=== PATIENT | male | born 1980 | race Two or more races ===

== ENCOUNTER 2024-07-22 08:00 | Outpatient (RCR) | payer BC, SELFPAY ==
--- NOTE | 2024-07-06 15:05 | PT.OIERPT ---
PT OP Initial Eval Patient Information Outpatient Physical Therapy Treatment Date: 07/06/24 Visit Reasons: LOW BACK PAIN Medical Diagnosis: Back Pain Treatment Dx #1: Back Pain Start of Care: 07/06/24 Smoking Status Smoking Status: Never smoker Initial Assessment Subjective: Pt is a 44 y/o male reports of back pain (02/07) with left radicular pain down the leg. Pt mention xray and CT scan negative. MD plans to do MRI if physical therapy doesn't help. Pt has limitation with walking, standing, chores, self care, cooking, cleaning, and performing recreational activities. Objective: L/S AROM: all motions are WFL with end range pain in all plane Hip PROM: all motions are WFL except IR Hip MMTs: grossly 3/5 Special Test (+) slump (+) SLR Assessment: Pt demonstrate back pain and mobility deficits consistent with disc involvement leading to difficulty with ADLs. Pt will attempt physical therapy if pain persist Pt will be refer back to provider for further consultation. 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
--- NOTE | 2024-07-13 15:59 | PT.ODAYNRPT ---
PT Outpatient Daily Note OP Daily Note Outpatient Physical Therapy Treatment Date: 07/13/24 Visit Reasons: LOW BACK PAIN Subjective: Pt's back is about the same. Pt mention sometimes pain goes down both leg. Objective: Please see flow chart for list of ther ex performed Assessment: during standing extension exercise increase radicular pain down the right glute and increase lumbar pressure, however, able to complete instructed reps. Plan: Continue with PT Length of Time (minutes) of Treatment: 30 Minutes Procedure Charges Therapeutic Exercise 30 minutes: Yes
--- NOTE | 2024-07-15 15:34 | PT.ODAYNRPT ---
PT Outpatient Daily Note OP Daily Note Outpatient Physical Therapy Treatment Date: 07/15/24 Visit Reasons: LOW BACK PAIN Subjective: Pt reports of tight, stiff and painful back. Objective: Please see flow sheet for ther ex list. Assessment: Pt educated and instructed on repeated lumbar extension for HEP. Pt able to replicate HEP with good mechanics. Plan: Continue with POC. Length of Time (minutes) of Treatment: 30 Minutes Procedure Charges Therapeutic Exercise 30 minutes: Yes
--- NOTE | 2024-07-20 10:12 | PT.ODAYNRPT ---
PT Outpatient Daily Note OP Daily Note Outpatient Physical Therapy Treatment Date: 07/20/24 Visit Reasons: LOW BACK PAIN Subjective: Pt reports low back pain continues to be present with no changes in LE symptoms. Objective: Please see flow sheet for ther ex list. Assessment: No changes in symptoms with repeated lumbar extension, pt encouraged to continue with press ups exercise for home as long as there is no increase or aggravating in LE symptoms. Plan: Continue with poC. Length of Time (minutes) of Treatment: 30 Minutes Procedure Charges Therapeutic Exercise 30 minutes: Yes
--- NOTE | 2024-07-22 09:30 | PT.ODAYNRPT ---
PT Outpatient Daily Note OP Daily Note Outpatient Physical Therapy Treatment Date: 07/22/24 Visit Reasons: LOW BACK PAIN Subjective: Pt's back is same and continues to have stiffness. Pt notice his right leg goes numb now too. Objective: Please see flow chart for list of ther ex performed Assessment: standing extension centralize pain but no significant change in overall back pain Plan: Continue with PT Length of Time (minutes) of Treatment: 30 Minutes Procedure Charges Therapeutic Exercise 30 minutes: Yes
== END 2024-07-30 23:59 | disposition home or self-care (01) ==
LOC: CPTX 08:00
PROVIDERS: PCP Internal Medicine; Referring Provider Internal Medicine; Visit Provider Internal Medicine
DX: M54.50 Low back pain, unspecified (principal); M79.605 Pain in left leg; R26.2 Difficulty in walking, not elsewhere classified
CPT/HCPCS: 97110; 97162

== ENCOUNTER 2024-08-04 08:00 | Outpatient (RCR) | payer BC, SELFPAY ==
--- NOTE | 2024-08-01 10:22 | PT.ODAYNRPT ---
PT Outpatient Daily Note OP Daily Note Outpatient Physical Therapy Treatment Date: 08/01/24 Visit Reasons: low back pain Subjective: Pt's back pain is pretty much the same. No change in overall symptoms. Objective: Please see flow chart for list of ther ex performed Assessment: no change in pain post PT session. supine heat continued to allow patient to tolerate exercises Plan: Continue with PT Length of Time (minutes) of Treatment: 30 Minutes Procedure Charges Therapeutic Exercise 30 minutes: Yes
--- NOTE | 2024-08-04 08:19 | PT.ODS1RPT ---
PT OP Progress/Discharge Note Date of Service: 08/04/24 Progress Note/DC Note Progress Note/Discharge Note: DC Note Patient Information Visit Reasons: low back pain Medical Diagnosis: Back Pain Treatment Dx #1: Back Pain Service Continue Service or Discharge: Discharge Discharge Date: 08/04/24 Status Subjective: Pt's back is the same and continues to have a pinch with lifting. Pt also reports of continued numbness down the legs. Pt has limitation with sitting, standing, chores, self care, and work duties. Objective: L/S AROM: all motions are WFL Hip PROM: all motions are WFL Hip MMTs: grossly 3+/5 Special Test (+) slump (+) SLR Assessment: Pt demonstrate functional L/S mobility, however, no change in radicular LE pain or back pain since starting physical therapy. Due to pain Pt continues to have limitation with ADLs. Pt will no longer benefit from physical therapy due to minimal progress towards goals. Pt was instructed on HEP last session and educated to continue to maintain overall mobility. Pt performed all exercises safely, thank you for your referrals. Plan: D/C home with HEP and follow up with MD ARREOLA Procedure Charges Therapeutic Exercise 30 minutes: Yes
== END 2024-08-30 23:59 | disposition home or self-care (01) ==
LOC: CPTX 08:00
PROVIDERS: PCP Internal Medicine; Referring Provider Internal Medicine; Visit Provider Internal Medicine
DX: M54.50 Low back pain, unspecified (principal); R26.2 Difficulty in walking, not elsewhere classified
CPT/HCPCS: 97110